=== PATIENT | female | born 1980 | race Hispanic/Latino ===

== ENCOUNTER 2018-06-07 15:58 | Emergency (ER) | payer BC, OTHER ==
[2018-06-07] MEDS ORDERED: CLINDAMYCIN HCL 150 MG CAP ONE (16:29)
[2018-06-07] MEDS ORDERED: ACETAMINOPHEN-CODEINE 300/30MG TAB ONE (16:29)
== END 2018-06-07 16:37 | disposition home or self-care (01) ==
LOC: EDH 15:58
DX: K08.89 Other specified disorders of teeth and supporting structures (principal); R22.0 Localized swelling, mass and lump, head; E11.9 Type 2 diabetes mellitus without complications; E78.5 Hyperlipidemia, unspecified; I10 Essential (primary) hypertension; Z90.49 Acquired absence of other specified parts of digestive tract; Z72.0 Tobacco use

== ENCOUNTER → 2019-03-15 | Outpatient (CLI) | payer OTHER | END | disposition home or self-care (01) | LOC: RAH 12:56 | PROVIDERS: ATTEND Nurse Practitioner Adult Health | DX: R22.31 Localized swelling, mass and lump, right upper limb (principal); E11.9 Type 2 diabetes mellitus without complications; I10 Essential (primary) hypertension; E78.5 Hyperlipidemia, unspecified; Z90.710 Acquired absence of both cervix and uterus | CPT/HCPCS: 76882 ==

== ENCOUNTER 2019-07-28 21:26 | Emergency (ER) | payer OTHER ==
[2019-07-28] MEDS ORDERED: IBUPROFEN 800 MG TAB ONE (21:55)
[2019-07-28 22:09] LABS: APPEARANCE,URINE Clear (CLEAR); BILIRUBIN,URINE Negative (NEGATIVE); COLOR,URINE Yellow (YELLOW); GLUCOSE, URINE (UA) Negative (NEGATIVE); KETONES,URINE Negative (NEGATIVE); LEUKOCYTE ESTERASE ,URINE Negative (NEGATIVE); NITRATE,URINE Negative (NEGATIVE); OCCULT BLOOD,URINE Negative (NEGATIVE); PH,URINE 8.5 (5.0-8.0); PROTEIN,URINE Negative (NEGATIVE)
[2019-07-28 22:14] LABS: HCG,QUAL RESULT NEGATIVE (NEGATIVE)
[2019-07-28 22:27] LABS: RAPID GROUP A STREP NEGATIVE (NEGATIVE)
[2019-07-28] MEDS ORDERED: PREDNISONE 20 MG TABLET ONE (22:28)
[2019-07-28] MEDS ORDERED: IPRATROPIUM/ALBUTEROL SULFATE 3 ML SOLUTION IH ONE (22:32)
== END 2019-07-28 23:08 | disposition home or self-care (01) ==
LOC: EDH 21:26
DX: J10.1 Influenza due to other identified influenza virus with other respiratory manifestations (principal); J20.9 Acute bronchitis, unspecified; E11.9 Type 2 diabetes mellitus without complications; E78.5 Hyperlipidemia, unspecified; I10 Essential (primary) hypertension; J45.909 Unspecified asthma, uncomplicated; Z98.890 Other specified postprocedural states; Z90.49 Acquired absence of other specified parts of digestive tract
CPT/HCPCS: 71046; 81003; 81025; 87804; 87880; 94640

== ENCOUNTER 2022-11-11 19:18 | Emergency (ER) | payer BC, OTHER ==
[~2022-11-11] VITALS: Ht 157.5 cm; Wt 126.6 kg
[~2022-11-11 19:18] MED LIST: AMOX500T2 PO; ATOR20TA65 PO; BUSP10TA3 PO; FURO40TA5 PO; LISI40TA9 PO; METF-446 PO; MONT-39 PO; VITAD50000 PO
[2022-11-11 19:48] VITALS: BP 152/90
[2022-11-11 22:38] LABS: APPEARANCE,URINE CLEAR (CLEAR); BILIRUBIN,URINE NEGATIVE (NEGATIVE); GLUCOSE, URINE (UA) NEGATIVE (NEGATIVE); KETONES,URINE NEGATIVE (NEGATIVE); LEUKOCYTE ESTERASE ,URINE NEGATIVE Leu/uL (NEGATIVE); NITRATE,URINE NEGATIVE (NEGATIVE); OCCULT BLOOD,URINE NEGATIVE (NEGATIVE); PROTEIN,URINE NEGATIVE (NEGATIVE); UROBILINOGEN,URINE 0.2 mg/dL (0.2-1.0)
[2022-11-11 22:43] LABS: HCG,QUALITATIVE URINE NEGATIVE (NEGATIVE)
[2022-11-11 22:44] LABS: COLOR,URINE YELLOW (YELLOW)
[2022-11-11 22:50] LABS: BASOPHILS % (AUTO) 0.3 % (0.0-5.0); EOSINOPHILS % (AUTO) 1.3 % (0.0-8.0); HEMATOCRIT 44.6 % (36-48); LYMPHOCYTES % (AUTO) 26.7 % (21.0-51.0); MEAN CORPUSCULAR HEMOGLOBIN 29.9 pg (27.0-33.0); MEAN CORPUSCULAR HGB CONC 32.7 g/dL (32.0-36.0); MEAN CORPUSCULAR VOLUME 91.4 fL (79-99); MONOCYTES % (AUTO) 5.6 % (3.0-13.0); NEUTROPHILS % (AUTO) 65.7 % (40.0-77.0); PLATELET COUNT (AUTO) 376 K/uL (130-400); RED BLOOD CELL COUNT(AUTO) 4.88 MIL/uL (4.00-5.50); RED CELL DISTRIBUTION WIDTH 12.1 % (11.0-15.5); WHITE BLOOD COUNT (AUTO) 13.5 K/uL (4.8-10.8)
[2022-11-11 22:57] LABS: CREATININE 0.8 mg/dL (0.5-1.5); POTASSIUM 4.2 mmol/L (3.5-5.1)
[2022-11-11] MEDS ORDERED: PANTOPRAZOLE 40 MG/VIAL IVP ONE (23:00)
[2022-11-11] MEDS ORDERED: KETOROLAC 15MG/ML VIAL (15MG/ML) IV ONE (23:00)
[2022-11-11] MEDS ORDERED: ONDANSETRON 4MG INJ IVP ONE (23:00)
[2022-11-11] MEDS ORDERED: MORPHINE 4 MG SYG IVP ONE (23:00)
[2022-11-11] MEDS ORDERED: 0.9%NACL 1000ML 1,000 ML IV ONE (23:00)
[2022-11-11 23:01] LABS: ALBUMIN 3.6 g/dL (3.5-5.0); TOTAL PROTEIN, SERUM 7.5 g/dL (6.0-8.3)
[2022-11-11] MEDS ORDERED: IOHEXOL 350 MG/ML 100ML INFUS..BTL IV ONE (23:42)
[2022-11-12] MEDS ORDERED: PANT40TA54 PO (00:44)
[2022-11-12] MEDS ORDERED: AMOX1TAB16 PO (00:44)
[2022-11-12] MEDS ORDERED: ONDA-104 PO (00:44)
[2022-11-12] MEDS ORDERED: DICY20TA2 PO (00:44)
[2022-11-12] MEDS ORDERED: ACET-66 PO (00:44)
== END 2022-11-12 00:55 | disposition home or self-care (01) ==
LOC: EDH 19:18
DX: K52.9 Noninfective gastroenteritis and colitis, unspecified (principal); I10 Essential (primary) hypertension; E11.9 Type 2 diabetes mellitus without complications; E78.00 Pure hypercholesterolemia, unspecified; F17.200 Nicotine dependence, unspecified, uncomplicated; Z79.84 Long term (current) use of oral hypoglycemic drugs; Z79.899 Other long term (current) drug therapy; Z90.49 Acquired absence of other specified parts of digestive tract; Z98.890 Other specified postprocedural states
CPT/HCPCS: 99284; 74177; 96374; 96375; 80053; 83690; 85025; 81003; 81025; 36415; 93005; J7030; J2405; C9113; J1885; Q9967